=== PATIENT | female | born 2000 | race Two or more races ===

== ENCOUNTER 2019-10-02 12:30 | Inpatient (IN) | payer OTHER ==
[~2019-10-02] VITALS: Ht 154.9 cm; Wt 59.4 kg
== END 2019-10-22 12:42 | disposition home or self-care (01) | DRG 807 ==
LOC: OB/GYN 10-19 12:30 → LDR 10-20 06:42 → OB/GYN 10-20 16:20
PROVIDERS: ADMIT Specialist; ATTEND Specialist
PROC: 10E0XZZ Delivery of Products of Conception, External Approach (ICD-10-PCS; principal; 2019-10-20)
PROC: 0W8NXZZ Division of Female Perineum, External Approach (ICD-10-PCS; 2019-10-20)
PROC: 4A0HXFZ Measurement of Products of Conception, Cardiac Rhythm, External Approach (ICD-10-PCS; 2019-10-20)
DX: O80 Encounter for full-term uncomplicated delivery (principal); Z37.0 Single live birth; Z3A.40 40 weeks gestation of pregnancy